=== PATIENT | female | born 1980 | race Hispanic/Latino ===

== ENCOUNTER 2021-09-05 12:05 | Outpatient (CLI) | payer BC | END 2021-09-05 12:06 | disposition home or self-care (01) | LOC: CSHMAMMO 12:05 | PROVIDERS: ATTEND Obstetrics & Gynecology | DX: Z12.31 Encounter for screening mammogram for malignant neoplasm of breast (principal) | CPT/HCPCS: 77063; 77067 ==

== ENCOUNTER 2021-12-01 23:11 | Emergency (ER) | payer BC ==
[2021-12-01] MEDS ORDERED: Acetaminophen 500 MG TAB ONE (23:32)
[2021-12-01 23:57] LABS: #Eosinphils 0.4 10x3/uL (0.0-0.5); #Monocytes 0.7 10x3/uL (0.0-1.1); #Neutrophils 4.6 10x3/uL (1.5-8.4); %Basophils 0.5 % (0.0-2.0); %Eosinophils 5.2 % (0.0-6.0); %Lymphocytes 27.1 % (18.0-47.0); %Monocytes 8.6 % (0.0-10.0); %Neutrophils 58.3 % (40.0-75.0); Hemoglobin 10.4 g/dL (12.0-15.5); Mean Corpuscular HGB CONC 30.7 g/dL (32.0-36.0); Mean Corpuscular Hemoglobin 22.5 pg (27.0-33.0); Mean Corpuscular Volume 73.4 fl (81.6-98.3); Platelet Count 305 10x3/uL (150-450); Red Blood Cell (RBC) Count 4.62 10x6/uL (3.90-5.03); White Blood Cell (WBC) Count 7.8 10x3/uL (3.5-10.5)
[2021-12-02 00:11] LABS: ALT (SGPT) 13 U/L (8-55); AST (SGOT) 18 U/L (5-34); Albumin 4.1 g/dL (3.5-5.0); Alkaline Phosphatase 75 U/L (40-110); Anion Gap 11 mmol/L (10-20); BUN (Urea Nitrogen) 14 mg/dL (7.0-18.7); Bilirubin, Total 0.2 mg/dL (0.2-1.2); Calc. Creatinine Clearance 0 mL/min (70-130); Calcium 8.8 mg/dL (7.8-10.44); Carbon Dioxide 25 mmol/L (22-29); Chloride 108 mmol/L (98-107); Globulin 3.5 g/dL (2.4-3.5); Glucose 101 mg/dL (70-105); Potassium 3.3 mmol/L (3.5-5.1); Protein, Total 7.6 g/dL (6.0-8.3); Sodium 141 mmol/L (136-145)
[2021-12-02 00:27] LABS: SARS-CoV-2 NAA Rapid Test DETECTED (NotDetected)
== END 2021-12-02 00:40 | disposition home or self-care (01) ==
LOC: CSHERS 23:11
DX: U07.1 COVID-19 (principal); D64.9 Anemia, unspecified; E87.6 Hypokalemia
CPT/HCPCS: 0240U; 71045; 80053; 84484; 85025; 85379; 93005

== ENCOUNTER 2022-01-15 12:53 | Day surgery (SDC) | payer BC ==
[2022-01-15] MEDS ORDERED: Bupivacaine PF 0.5% 30 ML VIAL ONE (13:14)
[2022-01-15] MEDS ORDERED: EPINEPHrine 1 MG/ML AMP ONE (13:14)
[2022-01-15] MEDS ORDERED: Lidocaine 1% MPF 2 ML VIAL ONE (13:29)
[2022-01-15] MEDS ORDERED: Famotidine/PF 20 mg/2ml Vial ONE (13:43)
[2022-01-15] MEDS ORDERED: PROPOFOL 20 ML ONE (13:49)
[2022-01-15] MEDS ORDERED: Fentanyl 100 MCG/2 ML VIAL ONE ×3 (13:49→17:59)
[2022-01-15] MEDS ORDERED: Scopolamine 1.5 mg/72 hour Patch ONE (14:02)
[2022-01-15] MEDS ORDERED: Midazolam HCl 2 mg/2 ml Vial ONE (14:51)
[2022-01-15] MEDS ORDERED: Ketamine 50 MG/ML (10ML VIAL) ONE (14:51)
[2022-01-15] MEDS ORDERED: Metoclopramide HCl 10 MG/2 ML VIAL ONE (14:53)
[2022-01-15] MEDS ORDERED: Dexamethasone 4 mg/ml Vial ONE (15:13)
[2022-01-15] MEDS ORDERED: ePHEDrine Sulfate 50 MG/10 ML VIAL ONE (15:15)
[2022-01-15] MEDS ORDERED: Ondansetron PF 4 MG/2 ML Vial ONE ×2 (15:55→17:56)
[2022-01-15] MEDS ORDERED: Glycopyrrolate 0.2 MG/ML 5 ML SYRINGE ONE (15:55)
[2022-01-15] MEDS ORDERED: Ketorolac Tromethamine 30 MG/ML VIAL ONE (15:56)
[2022-01-15] MEDS ORDERED: HYDROmorphone 0.5 MG/0.5 ML SYRINGE ONE (16:44)
== END 2022-01-15 19:00 | disposition home or self-care (01) ==
LOC: CSHLAB 12:53 → CSHSDC 19:00
PROVIDERS: ATTEND Obstetrics & Gynecology
PROC: 0UT54ZZ Resection of Right Fallopian Tube, Percutaneous Endoscopic Approach (ICD-10-PCS; principal; 2022-01-15)
DX: N83.8 Other noninflammatory disorders of ovary, fallopian tube and broad ligament (principal); N70.11 Chronic salpingitis; N73.6 Female pelvic peritoneal adhesions (postinfective); Z86.16 Personal history of COVID-19; Z88.0 Allergy status to penicillin; Z01.812 Encounter for preprocedural laboratory examination; Z20.822 Contact with and (suspected) exposure to COVID-19; N83.201 Unspecified ovarian cyst, right side
CPT/HCPCS: 84703; 85027; 86850; 86900; 86901; 88305; J0171; J1100; J1170; J1885; J2250; J2405; J2704; J2765; J3010; J3490; S0020; S0028; U0002